=== PATIENT | male | born 1940 | race American Indian/Alaskan Native ===

== ENCOUNTER 2016-11-11 20:49 | Emergency (ER) | payer MEDICARE ==
[2016-11-11] MEDS ORDERED: VANCOMYCIN/NS 1 GM/250 ML 1 GM/250 ML BAG IV ONE (21:13)
[2016-11-11] MEDS ORDERED: NACL 0.9% 1000 ML IV ONE (21:13)
--- NOTE | 2016-11-11 21:24 | Emergency Department Report ---
ED Fever HPI - General Stated Complaint: LOW BLOOD PRESSURE, BODY PAIN Time Seen by Provider: 11/11/16 21:05 Source: patient - History of Present Illness Initial Comments: 35-year-old male with a history of end-stage renal disease heart transplant and abdominal aortic repair here with fever and confusion. Patient is one month post AAA repair and appears confused coring the family. He is a fever to 102.6. Patient complains of pain all over but otherwise has no focal complaints. Denies cough shortness of breath. He has a known history of COPD and CHF. Timing/Duration: just prior to arrival Fever Severity/Quality: greater than 102 F Associated Symptoms: abdominal pain, muscle aches. denies: chest pain, confusion, headache, nausea/vomiting ED Review of Systems ROS: Stated complaint: LOW BLOOD PRESSURE, BODY PAIN Other details as noted in HPI Comment: Unobtainable due to pts medical conditions Constitutional: chills, fever Cardiovascular: denies: chest pain Gastrointestinal: abdominal pain. denies: nausea, vomiting ED Past Medical Hx - Family History Family history: no significant ED Physical Exam - General Limitations: Altered Mental Status General appearance: alert - Head Head exam: Present: atraumatic, normocephalic - Eye Eye exam: Present: normal appearance, conjunctival injection - ENT ENT exam: Present: normal exam - Respiratory Respiratory exam: Present: normal lung sounds bilaterally. Absent: respiratory distress, wheezes - Cardiovascular Cardiovascular Exam: Present: normal rhythm, tachycardia, other (well-healed sternal scar) - GI/Abdominal GI/Abdominal exam: Present: distended, tenderness (diffuse tenderness). Absent : guarding - Extremities Exam Extremities exam: Present: normal inspection - Neurological Exam Neurological exam: Present: alert - Psychiatric Psychiatric exam: Present: normal affect, normal mood ED Course Vital Signs 11/11/16 11/11/16 11/11/16 21:05 21:15 21:22 Temperature 103.4 F H Pulse Rate 135 H 134 H Respiratory 25 H 20 Rate Blood Pressure 79/35 90/51 90/51 O2 Sat by Pulse 100 93 99 Oximetry 11/11/16 11/11/16 11/11/16 21:31 21:45 22:00 Temperature Pulse Rate 132 H 136 H 129 H Respiratory 21 20 22 Rate Blood Pressure 90/51 90/51 100/53 O2 Sat by Pulse 100 99 100 Oximetry 11/11/16 11/11/16 11/11/16 22:15 22:30 22:45 Temperature Pulse Rate 132 H 130 H 128 H Respiratory 20 19 20 Rate Blood Pressure 94/50 82/46 80/38 O2 Sat by Pulse 100 99 99 Oximetry 11/11/16 11/11/16 11/11/16 23:00 23:13 23:15 Temperature Pulse Rate 128 H 128 H 128 H Respiratory 21 21 19 Rate Blood Pressure 80/47 80/47 70/43 O2 Sat by Pulse 98 99 99 Oximetry 11/11/16 11/11/16 11/11/16 23:27 23:30 23:45 Temperature 100.2 F H Pulse Rate 126 H 125 H Respiratory 21 20 Rate Blood Pressure 68/41 61/40 O2 Sat by Pulse 98 99 Oximetry 11/12/16 11/12/16 11/12/16 00:00 00:15 00:30 Temperature Pulse Rate 122 H 118 H 116 H Respiratory 18 16 14 Rate Blood Pressure 69/43 73/46 76/49 O2 Sat by Pulse 98 100 99 Oximetry 11/12/16 11/12/16 11/12/16 00:45 01:00 01:02 Temperature 98.2 F Pulse Rate 115 H 112 H Respiratory 18 15 Rate Blood Pressure 79/51 81/46 O2 Sat by Pulse 99 100 Oximetry 11/12/16 11/12/16 11/12/16 01:15 01:30 01:45 Temperature Pulse Rate 113 H 120 H 113 H Respiratory 18 20 20 Rate Blood Pressure 78/51 97/58 82/52 O2 Sat by Pulse 100 100 100 Oximetry 11/12/16 11/12/16 11/12/16 02:00 02:15 02:30 Temperature Pulse Rate 118 H 118 H 125 H Respiratory 21 20 23 Rate Blood Pressure 89/55 96/51 96/55 O2 Sat by Pulse 100 99 98 Oximetry 11/12/16 11/12/16 11/12/16 02:45 03:01 03:15 Temperature Pulse Rate 124 H 130 H 129 H Respiratory 22 24 23 Rate Blood Pressure 92/51 99/51 92/52 O2 Sat by Pulse 99 97 98 Oximetry 11/12/16 03:30 Temperature Pulse Rate 129 H Respiratory 22 Rate Blood Pressure 95/55 O2 Sat by Pulse 97 Oximetry ED Medical Decision Making - Lab Data Result diagrams: 11/11/16 21:30 11/11/16 21:30 Laboratory Results - last 24 hr 11/11/16 11/11/16 11/11/16 21:30 21:30 21:30 WBC 11.5 H RBC 2.86 L Hgb 8.4 L Hct 26.0 L MCV 91 MCH 29 MCHC 32 RDW 16.6 H Plt Count 248 Lymph % (Auto) 4.2 L [place] % (Auto) 6.0 Eos % (Auto) 0.2 Baso % (Auto) 0.6 Lymph # 0.5 L [place] # 0.7 Eos # 0.0 Baso # 0.1 Seg Neutrophils % 89.0 H Seg Neutrophils # 10.2 H PT 16.9 H INR 1.38 H Sodium Potassium Chloride Carbon Dioxide Anion Gap BUN Creatinine Estimated GFR BUN/Creatinine Ratio Glucose Lactic Acid 1.40 Calcium Total Bilirubin ALT Alkaline Phosphatase Troponin T Total Protein Albumin Albumin/Globulin Ratio 11/11/16 21:30 WBC RBC Hgb Hct MCV MCH MCHC RDW Plt Count Lymph % (Auto) [place] % (Auto) Eos % (Auto) Baso % (Auto) Lymph # [place] # Eos # Baso # Seg Neutrophils % Seg Neutrophils # PT INR Sodium 139 Potassium 5.0 Chloride 92.4 L Carbon Dioxide 24 Anion Gap 28 BUN 47 H Creatinine 5.7 H Estimated GFR 10 BUN/Creatinine Ratio 8.24 Glucose 96 Lactic Acid Calcium 9.0 Total Bilirubin 2.70 H ALT 14 Alkaline Phosphatase 179 H Troponin T 0.225 H* Total Protein 7.4 Albumin 3.4 L Albumin/Globulin Ratio 0.9 - EKG Data -: EKG Interpreted by Nc - EKG Data 11/11/16 22:25 Sinus tachycardia rate of 132 normal axis right bundle branch block T-wave inversions in V2 through V6. - Medical Decision Making 75-year-old female with multiple medical problems here with high fever. Patient will need to full sepsis workup. Plan initiate fluids and empiric antibiotics and plan to reassess. Patient with elevated white count and low blood pressure and tachycardia. Patient likely early sepsis. Plan to treat with IV fluid bolus and antibiotics. His lactate is 1.4. I discussed the case with [facility] at approximately 10 PM. Plan is to transfer the patient to the intensive care unit [facility] [place] given the patient's complex nature. I discussed this with the family and their agreement. I discussed the case with the transfer center at approximately 11:30 and the patient was accepted in transfer by Dr. Sneed. Plan transfer the patient. He is mentating well despite his low blood pressure. At this point will give another fluid bolus and plan to transfer the patient to the CCU. I discussed the case with Dr. Sneed he asked me to place a central line for transport. In discussions with the family the family would prefer the patient to go to [facility] [place] without the central line. I had a long discussion of risks and benefits with the family including the possibility that the patient's blood pressure could drop in a month. They were comfortable traveling to [place] without the central line. I counseled them that they would likely have the procedure Sh[place] anyway. They understood this and decided they wanted to continue with the transfer regardless. The patient is mentating well he has a normal lactate. Although I think this patient is likely septic I believe he is stable for transfer at this time. He has a known history of low blood pressures and occasionally takes Midrin to support his blood pressure. Patient's blood pressure has remained in the 80s and 90s over the course of the last couple hours. I did approach the patient family again about central line and they would prefer to wait until they got to [place]. At this point I feel the patient is stable for transfer. I discussed this with [facility] and will transfer the patient. Portions of this chart were dictated with dictation software. There may be dictation errors contained within this note. Critical Care Time: Yes Critical care attestation.: If time is entered above; I have spent that time in minutes in the direct care of this critically ill patient, excluding procedure time. Critical Care Time: 90 ED Disposition Clinical Impression: Fever, Tachycardia, ESRD (end stage renal disease), Sepsis Disposition: [id number] ANOTHER TYPE HLTHCARE Is pt being admited?: No Condition: Stable Referrals: PRIMARY CARE, [Primary Care Provider] - 3-5 Days
[2016-11-11] MEDS ORDERED: TYLENOL PO ONE (21:41)
[2016-11-11] MEDS ORDERED: TYLENOL ONE (21:46)
[2016-11-11 21:48] LABS: Basophils % (Auto) 0.6 % (0.0-1.8); Eosinophils % (Auto) 0.2 % (0.0-4.3); Hemoglobin 8.4 gm/dl (11.8-15.2); Mean Corpuscular HGB Conc 32 % (32-34); Mean Corpuscular Hemoglobin 29 pg (28-32); Mean Corpuscular Volume 91 fl (84-94); Platelet Count 248 K/mm3 (140-440); Red Blood Count 2.86 M/mm3 (3.65-5.03); Red Cell Distribution Width 16.6 % (13.2-15.2); White Blood Count 11.5 K/mm3 (4.5-11.0)
[2016-11-11 21:59] LABS: INR 1.38 (0.87-1.13)
[2016-11-11] MEDS ORDERED: MAXIPIME/NS 2 GM/100 ML 2 GM/100 ML BAG IV ONE (22:00)
[2016-11-11 22:13] LABS: Albumin 3.4 g/dL (3.9-5); Albumin/Globulin Ratio 0.9 %; BUN/Creatinine Ratio 8.24; Bilirubin,Total 2.7 mg/dL (0.1-1.2); Chloride 92.4 mmol/L (98-107); Total Protein 7.4 g/dL (6.3-8.2)
[2016-11-11] MEDS ORDERED: NACL 0.9% 500 ML 500 ML ONE (23:50)
[2016-11-12 03:34] VITALS: BP 95/55
[2016-11-12] MEDS ORDERED: TYLENOL ONE (04:06)
[2016-11-12] MEDS ORDERED: TYLENOL PO ONE (04:06)
--- NOTE | 2016-11-12 08:24 | XRay Report ---
PORTABLE CHEST INDICATION: Fever, sepsis. COMPARISON: None similar at this institution. FINDINGS: Portable, frontal chest radiograph demonstrates top normal heart size, aortic knob calcifications, sternotomy wires and aortic stent repair. Few left axillary surgical clips as well. Prominent tamra, more so on the right with mild diffuse bronchovascular prominence. No significant pleural effusions or overt CHF. EKG leads. Few bony degenerative changes. CONCLUSION: No significant acute chest process with various findings, as above. Direct comparison with prior chest imaging would also be helpful to assess for subtle change, if any. Thank you for the opportunity to participate in this patient's care.
== END 2016-11-12 05:55 | disposition other institution (70) ==
LOC: ED 20:49
DX: A41.9 Sepsis, unspecified organism (principal); R00.0 Tachycardia, unspecified; N18.6 End stage renal disease; Z94.1 Heart transplant status
CPT/HCPCS: 36415; 71010; 80053; 80061; 82140; 84484; 85025; 85610; 87040; 87076; 87186; 93005; 93010; 96365; 96366; 96367; 99291; 99292; J0692; J3370; J7030; J7040